=== PATIENT | female | born 1945 | race Caucasian/White ===

== ENCOUNTER 2016-08-25 06:45 | Day surgery (SDC) | payer MEDICARE, OTHER ==
[2016-08-25] VITALS (13 sets, daily range): BP systolic 100–158; BP diastolic 51–68; PULSE 50–62; RESP 10–20; TEMP 97.2–97.9; O2SAT 9–100; Ht 160 cm; Wt 66.4 kg
[~2016-08-25] VITALS: Ht 160 cm; Wt 66.4 kg
[~2016-08-25 06:45] MED LIST: CHOL200026 PO; ZIJA PO; [UNRECOGNIZED DRUG - CODE] PO
--- OUTSIDE RECORDS SUMMARY | 2016-08-25 06:49 | XMS REPORT | Continuity of Care Document ---
Author Author Cecy Reddy MD Organization Ambulatory Address [address] [place] [address] Phone Care Team Providers Care Inspector Poising Name Role Phone Waylon Reeves PP Unavailable Payers Payer name Insurance type Covered republican ID Authorization(s) Unknown Problems Condition Effective Dates (start - stop) Clinical Status Hereditary hemochromatosis - *Stable HEREDIT HEMOCHROMATOSIS - Uncertain HEMOCHROMATOSIS NEC - *Chronic Splenic artery aneurysm - *Chronic Hemochromatosis - *Chronic Family History Family Member Diagnosis Age At Onset Status Unknown Social History Social History Element Description Quantity Unknown Allergies, Adverse Reactions, Alerts Substance Reaction Severity Status Unknown Medications Medication Instructions Dosage Effective Dates (start - stop) Status take by Oral route moringaoleifera-ziga 0 - Active Vitamin D3 5,000 unit tablet take 1 Tablet by Oral route 0 - Active Raspberry Flavoring oil - Active Immunizations Vaccine Date Status Comments Unknown Results Test Name Date and Time Measure Units Reference Range Abnormal Flag Comments Unknown Vital Signs Date / Time: Height Weight Pulse Rate Blood Pressure Temperature /13:04:00 63.00 in 148.00 lbs 76 /min 118/70 mm[Hg] Procedures Procedure Date Unknown Encounters Encounter Location Date Patient Visit [facility] [place] [facility] Patient Visit [facility] Patient Visit [facility] New FM Patient Visit [facility] Advance Directives Directive Effective Date Unknown
--- OUTSIDE RECORDS SUMMARY | 2016-08-25 06:49 | XMS REPORT | Referral Summary ---
Author Author [facility], [facility] Care Organization [facility], [facility] Address Unknown Phone Unavailable Care Team Providers Care Hyperbaric Welder Diver Name Role Phone MelissamaryMary Primary Care Physician [phone] Encounter VC Date(s): 08/02/15 - 08/02/15 [facility], [address] [place] [address] Discharge Disposition: 01-Home or Self Care Attending Physician: Hortensia Blackwell DO Admitting Physician: Hortensia Blackwell DO Vital Signs Most recent to 1 oldest [Reference Range]: Temperature Tympanic 36.3 degC [36.6-38.1 degC] *LOW* (08/02/15 10:38 AM) Peripheral Pulse 56 bpm Rate [60-100 bpm] *LOW* (08/02/15 10:38 AM) SpO2 97 % (08/02/15 10:38 AM) Problem List Condition Effective Dates Status Health Status Informant Aneurysm of splenic Active artery(Confirmed) Hemochromatosis(Conf Active irmed) Lichen Active planus(Confirmed) Shoulder Active pain(Confirmed) Allergies, Adverse Reactions, Alerts No Known Allergies Medications No data available for this section Results No data available for this section Immunizations No data available for this section Procedures Procedure Date Related Diagnosis Body Site Excisional rt cervical lymph node bx 05/31/11 hemangioma1 Colonoscopies2 04/18/06 Tonsillectomy Tubal ligation Upper GI endoscopy3 1Dr. Nae [id number] C-Scope: WNL repeat 10 yrs. [address] at [facility]. Antral erosion, negative for H. pylri, hiatal hernia. Social History Social History Type Response Smoking Status Never smoker Assessment and Plan Extracted from: Title: IC Rash Author: Hortensia Blackwell DO Date: 08/02/15 Assessment/Plan Rash Rash has the appearance of a drug eruption. Since patient is done with Bactrim, Iadvised her that she should probably add this to her allergy list. Patient was provided with 40 mg ofDepo-Medrol todayit advised to take Benadrylor use hydrocortisone cream for itching. Patient advised with anysigns or symptoms of airway compromise to present to the emergency department. Ordered: Office Visit Level 3 Est 15362
--- OUTSIDE RECORDS SUMMARY | 2016-08-25 06:49 | XMS REPORT | Referral Summary ---
Author Author [facility] Organization [facility] Address Unknown Phone Unavailable Encounter VC CHAUDHRY [id number] Date(s): 01/03/15 - 01/03/15 [facility] [address] [place], [place] [address] Discharge Diagnosis: Hemochromatosis Discharge Diagnosis: Hemochromatosis Discharge Disposition: 01-Home or Self Care Attending Physician: Cecy Reddy MD Admitting Physician: Cecy Reddy MD Vital Signs Most recent to 1 oldest [Reference Range]: Peripheral Pulse 56 bpm Rate [60-100 bpm] *LOW* (01/03/15 8:58 AM) Blood Pressure 114/65 mmHg [90-140/60-90 mmHg] (01/03/15 8:58 AM) Problem List Condition Effective Dates Status Health Status Informant Aneurysm of splenic Active artery(Confirmed) Hemochromatosis(Conf Active irmed) Lichen Active planus(Confirmed) Shoulder Active pain(Confirmed) Allergies, Adverse Reactions, Alerts No Known Allergies Medications venancio supplement venancio supplement, 0 Refill(s) Start Date: 01/03/15 Status: Ordered Vitamin D3 5000 intl units oral tablet 5,000 Intl_Units 1 tabs, Oral, Daily, # 100 tabs, 0 Refill(s) Start Date: 09/24/14 Status: Ordered Results No data available for this section Immunizations No data available for this section Procedures Procedure Date Related Diagnosis Body Site Excisional rt cervical lymph node bx 05/31/11 hemangioma1 Colonoscopies2 04/18/06 Tonsillectomy Tubal ligation Upper GI endoscopy3 1Dr. Nae [id number] C-Scope: WNL repeat 10 yrs. [address] at [facility]. Antral erosion, negative for H. pylri, hiatal hernia. Social History Social History Type Response Smoking Status Never smoker Assessment and Plan Extracted from: Title: Ambulatory Patient Education Author: Cecy Reddy MD Date: 01/03/15 Family Medicine Hemochromatosis You have hemochromatosis. This is when you have too much iron in your body. Iron is necessary in your body for many reasons. Iron works in the hemoglobin ( a protein in red blood cells) which carries oxygen to your body. However, too much iron can lead to long-term health problems. When the iron builds up in the body it affects the liver, heart, and pancreas. This can lead to heart failure, diabetes, cirrhosis, cancer, impotence, and depression. Fatigue is a common complaint. Additional symptoms include headache, shortness of breath, heart irregularities, and tanning skin. The most common cause of this disease is hereditary (passed from parents). Another cause is a diet that contains too much iron. This can happen to people who eat a lot of red meat, take supplemental iron, take vitamin C, and drink alcohol. Frequent transfusions may also lead to iron overload. DIAGNOSIS Three simple blood tests will usually make the diagnosis of hemochromatosis. A transferrin iron saturation percentage test will measure your ability to circulate iron. A ferritin test will measure the amount of iron you have in storage. A hemoglobin test will measure how much iron is circulating in your blood. HOME CARE INSTRUCTIONS Follow the diet provided for you by your caregiver. The recommended daily allowance for iron is: 15 mg per day for women ages 12 to 49. 30 mg per day for women who are or lactating. 10 mg per day for men and women ages 50 and older. It is important to follow your caregiver's instructions because you can lead a normal life with treatment. If left untreated, this disease can be life- threatening. MAKE SURE YOU: Understand these instructions. Will watch your condition. Will get help right away if you are not doing well or get worse. Document Released: 04/22/2001 Document Revised: 07/17/2012 Document Reviewed: ExitCare Patient Information 2015 [employer]. This information is not intended to replace advice given to you by your health care provider. Make sure you discuss any questions you have with your health care provider. No follow up information was provided. Extracted from: Title: Office Visit Note Author: Cecy Reddy MD Date: 01/03/15 Assessment/Plan Hemochromatosis Hereditary hemochromatosis which is presently stable. She does not have any signs of cirrhosis. Continue phlebotomy every 4 months. Her next phlebotomy date is around March 2015. CBC, CMP, PT/INR, ferritin, and liver sonogram will be ordered at that time. She is also due for her colonoscopy for colon cancer screening.. She will call the surgeon does her colonoscopies. Follow-up in one year.
--- OUTSIDE RECORDS SUMMARY | 2016-08-25 06:49 | XMS REPORT | Referral Summary ---
Author Author [facility], [facility] Care Organization [facility] Address Unknown Phone Unavailable Care Team Providers Care Research Consultant Name Role Phone Melissamary Mary Primary Care Physician [phone] Encounter VC Date(s): 07/25/15 - 07/25/15 [facility] [address] [place] [address] Discharge Diagnosis: Cellulitis Discharge Disposition: 01-Home or Self Care Attending Physician: Vadim Tsang PA-C Admitting Physician: Vadim Tsang PA-C Vital Signs Most recent to 1 oldest [Reference Range]: Temperature Tympanic 36.7 degC [36.6-38.1 degC] (07/25/15 4:24 PM) Peripheral Pulse 86 bpm Rate [60-100 bpm] (07/25/15 4:24 PM) Blood Pressure 118/60 mmHg [90-140/60-90 mmHg] (07/25/15 4:24 PM) SpO2 98 % (07/25/15 4:24 PM) Problem List Condition Effective Dates Status Health Status Informant Aneurysm of splenic Active artery(Confirmed) Hemochromatosis(Conf Active irmed) Lichen Active planus(Confirmed) Shoulder Active pain(Confirmed) Allergies, Adverse Reactions, Alerts No Known Allergies Medications Bactrim DS 800 mg-160 mg oral tablet 1 tabs, Oral, BID, X 7 days, # 14 tabs, 0 Refill(s), Pharmacy: [facility] #[id number] Start Date: 07/25/15 Stop Date: 08/01/15 Status: Ordered mupirocin 2% topical ointment 1 tana, Topical, TID, apply a thin film, X 5 days, # 30 g, 1 Refill(s), Pharmacy : [facility] #[id number] Start Date: 07/25/15 Stop Date: 08/04/15 Status: Ordered Results No data available for this section Immunizations No data available for this section Procedures Procedure Date Related Diagnosis Body Site Excisional rt cervical lymph node bx 05/31/11 hemangioma1 Colonoscopies2 04/18/06 Tonsillectomy Tubal ligation Upper GI endoscopy3 1Dr. Nae 72704 C-Scope: WNL repeat 10 yrs. [address] at [facility]. Antral erosion, negative for H. pylri, hiatal hernia. Social History Social History Type Response Smoking Status Never smoker Assessment and Plan Extracted from: Title: Left breast lesion Author: Vadim Tsang PA-C Date: 07/25/15 Assessment/Plan Cellulitis For itching use over the counter hydrocortisone anti-itch cream; apply mupirocin to open wound; take antibiotic as directed. T ylenol or ibuprofen for pain; if symptoms worsen follow up with primary care provider in 2 -3 days or as needed. Orders: mupirocin topical, 1 tana, Topical, TID, apply a thin film, X 5 days, # 30 g, 1 Refill(s), Pharmacy: [facility] #[id number] sulfamethoxazole-trimethoprim, 1 tabs, Oral, BID, X 7 days, # 14 tabs, 0 Refill(s), Pharmacy: [facility] #[id number]
--- OUTSIDE RECORDS SUMMARY | 2016-08-25 06:49 | XMS REPORT | Continuity of Care Document ---
Author Author [facility] Organization [facility] Address Unknown Phone Unavailable Allergies Medications Problems Procedures Results Encounters ACCT No. Visit Date/Time Discharge Status Pt. Type Provider Facility Loc./Unit Complaint [id number] 07/17/2013 13:02:00 07/17/2013 23 :59:59 CLS Outpatient
[2016-08-25] MEDS ORDERED: LIDOCAINE 1% (10mg/ml) 2ml SDV INJ ONE (07:00)
[2016-08-25] MEDS ORDERED: LR 1,000 ML IV SCH (07:00)
[2016-08-25] MEDS ORDERED: MIDAZOLAM 5mg/5ml INJECTION ONE ×2 (09:31→09:49)
[2016-08-25] MEDS ORDERED: SALINE FLUSH 10ml SYRINGE ONE (09:32)
[2016-08-25] MEDS ORDERED: FENTANYL 100mcg/2ml INJECTION ONE (09:32)
[2016-08-25] MEDS ORDERED: MIDAZOLAM 5mg/5ml INJECTION IV PRN (09:38)
[2016-08-25] MEDS ORDERED: FENTANYL 100mcg/2ml INJECTION IV PRN (09:38)
--- NOTE | 2016-08-25 14:20 | OPNOTEF ---
DATE OF OPERATION 08/25/2016 INDICATION Colorectal cancer screening and history of ileitis. OPERATION Colonoscopy SURGEON New Prasad D.O. ASA CLASSIFICATION II Consent signed and on the chart. Routine monitoring with ECG, continuous oximetry and noninvasive blood pressure was performed throughout the procedure and found to be within normal limits. IV sedation was performed with a total of 7 mg of Versed and 70 mcg of Fentanyl. Prior to the procedure, the patient was brought to the endoscopy lab where a brief review of her medical history and physical exam was performed. The procedure was described to her and she was agreeable to continue. All questions were answered. DESCRIPTION OF OPERATION She was given IV sedation and placed in the left lateral decubitus position. A digital rectal exam was normal. The colonoscope was introduced through the anal verge and advanced to the cecum. Upon reaching the cecum, careful inspection of mucosa was performed. The ileocecal valve was intubated and the scope passed into the terminal ileum. Terminal ileum looked completely normal. Endoscope was brought back into the cecum and then from the cecum through the ascending, transverse, descending, sigmoid colon and rectum, there were no polyps, masses, lesions or diverticula. She tolerated the procedure well. There were no complications. IMPRESSION Normal colonoscopy into the terminal ileum. RECOMMENDATIONS Repeat in 10 years consistent with current colon cancer screening guidelines. DERIRCK
== END 2016-08-25 11:18 | disposition home or self-care (01) ==
LOC: NSC 06:45
PROVIDERS: ATTEND Internal Medicine
DX: Z12.11 Encounter for screening for malignant neoplasm of colon (principal); Z87.19 Personal history of other diseases of the digestive system; E83.110 Hereditary hemochromatosis
CPT/HCPCS: G0121; J2250; J3010; J7120